=== PATIENT | female | born 1975 | race Asian ===

== ENCOUNTER 2017-08-21 13:36 | Day surgery (SDC) | payer BC, OTHER ==
[2017-08-21 13:59] VITALS: BMI 31.1
[2017-08-21] MEDS ORDERED: ONDANSETRON 4 MG/2 ML VIAL IVPUSH PRN ×2 (14:24→14:55)
[2017-08-21] MEDS ORDERED: oxyCODONE HCL 5 MG TABLET PO PRN ×2 (14:24→14:55)
[2017-08-21] MEDS ORDERED: PROMETHAZINE HCL 25 MG/1 ML VIAL IVPUSH PRN (14:24)
[2017-08-21] MEDS ORDERED: LACTATED RINGERS SOLUTION 1,000 ML IV SCH (14:30)
[2017-08-21] MEDS ORDERED: PROPOFOL 20 ML ONE (14:35)
[2017-08-21] MEDS ORDERED: SUCCINYLCHOLINE CHLORIDE 200 MG/10 ML VIAL ONE (14:35)
[2017-08-21] MEDS ORDERED: IBUPROFEN 800 MG/8 ML IJ IVPB PRN (14:55)
[2017-08-21] MEDS ORDERED: IBUPROFEN 600 MG TABLET (FP) PO PRN (14:55)
[2017-08-21] MEDS ORDERED: ELECTROLYTE-148 SOLN 1,000 ML IV SCH (15:00)
[2017-08-21 16:01] VITALS: TEMP 97.7
[2017-08-21 17:11] VITALS: BP 121/85; PULSE 70
--- NOTE | 2017-08-21 19:43 | OP ---
DATE OF OPERATION: 08/21/2017 PREOPERATIVE DIAGNOSIS: Menometrorrhagia, anemia, endometrial polyp. POSTOPERATIVE DIAGNOSIS: Menometrorrhagia, anemia, endometrial polyp. PROCEDURE: Hysteroscopy, dilatation and curettage, polypectomy. SURGEON: Jurgen Patterson MD ANESTHESIA: General. ANESTHESIOLOGIST: Inna Gonzales MD ESTIMATED BLOOD LOSS: 50 mL. OPERATION: Patient was taken to operating room under adequate general anesthesia. Examination under anesthesia revealed external genitalia to be normal. Vagina with moderate amount of red blood. Cervix was slightly open. No gross lesion. Uterus was normal size. Adnexa: No masses palpable. Then with a weighted speculum in the vagina, anterior lip of the cervix was grasped with single-tooth tenaculum and then hysteroscope was introduced. Visualization of the endocervical canal appeared to be normal. Endometrium was irregular, hypertrophic, with a polyp at the fundal area, approximately 1 cm. Both cornua region were identified. No other abnormality found. No submucous myoma was seen. Then the hysteroscope was withdrawn. Polyp was removed, and then endometrium was curetted in software engineer mobile fashion and large amount of tissue was obtained. Patient tolerated procedure well, left the OR in good condition. JURGEN PATTERSON M.D. [id number]
--- NOTE | 2017-08-25 12:42 | PATH ---
Surgical Pathology Report Patient Name: JASMIN ANDRADE [facility]. Rec. #: [id number] /Age/Gender: 1975 (Age: 42) / F Account: [id number] Location: [facility] SUR[facility] Taken: 08/21/2017 Received: 08/22/2017 Reported: 08/25/2017 Physicians: Jurgen Patterson M.D. Specimen(s) Received A: ENDOMETRIAL POLYP B: ENDOMETRIAL CURETTINGS Clinical History Anemia, acute blood loss Final Diagnosis A. ENDOMETRIAL POLYP, DILATATION AND CURETTAGE: ENDOMETRIAL POLYP, FRAGMENTS. B. ENDOMETRIAL CURETTINGS, DILATATION AND CURETTAGE: ENDOMETRIAL POLYP, FRAGMENTS Electronically Signed Carlota Acharya M.D. Gross Description A. Received in formalin labeled "endometrial polyp," is a 1.7 x 1.5 x 0.3 cm aggregate of ellison soft tissue fragments. The formalin is filtered and the specimen is entirely submitted in one cassette. B. Received in formalin labeled "endometrial curettings," is a 4.3 x 2.7 x 0.3 cm aggregate of ellison-brown soft tissue fragments. The formalin is filtered and the specimen is entirely submitted in 2 cassettes. 08/22/2017 saudi08/22/2017
== END 2017-08-21 17:20 | disposition home or self-care (01) ==
LOC: JPSTO 13:36 → JASU-SURG 13:36
PROVIDERS: ATTEND Obstetrics & Gynecology
PROC: 0UB98ZX Excision of Uterus, Via Natural or Artificial Opening Endoscopic, Diagnostic (ICD-10-PCS; principal; 2017-08-21 15:00)
PROC: 0UDB8ZX Extraction of Endometrium, Via Natural or Artificial Opening Endoscopic, Diagnostic (ICD-10-PCS; 2017-08-21 15:00)
DX: N92.1 Excessive and frequent menstruation with irregular cycle (principal); D50.0 Iron deficiency anemia secondary to blood loss (chronic); N84.0 Polyp of corpus uteri
CPT/HCPCS: 36415; 84702; 88305-TC; 94760

== ENCOUNTER 2017-12-11 13:29 | Day surgery (SDC) | payer BC, OTHER ==
[2017-12-10 15:52] VITALS: BMI 31.8
[2017-12-11 14:07] LABS: BASO % 0.7 % (0-2.0); EOS % 1.5 % (0-4.5); HEMATOCRIT 31.4 % (32.4-45.2); HEMOGLOBIN 10.2 GM/dL (10.7-15.3); LYMPH % 27.2 % (8-40); MCH 26.4 pg (25.7-33.7); MCHC 32.5 g/dl (32.0-36.0); MEAN CELL VOLUME 81.4 fl (80-96); MEAN PLT VOLUME 6.7 fl (7.5-11.1); NEUT % 63.6 % (42.8-82.8); PLATELET COUNT 223 K/MM3 (134-434); RBC 3.86 M/mm3 (3.60-5.2); RDW 16.9 % (11.6-15.6); WHITE BLOOD COUNT 5.3 K/mm3 (4.0-10.0)
[2017-12-11] MEDS ORDERED: PROPOFOL 20 ML ONE ×2 (14:08)
[2017-12-11] MEDS ORDERED: MIDAZOLAM HCL 2 MG/2 ML SINGLE DOSE VIAL ONE (14:08)
[2017-12-11 14:19] LABS: INR 0.95 (0.82-1.09); PROTHROMBIN TIME (PATIENT) 10.7 SEC (9.98-11.88)
--- NOTE | 2017-12-11 14:36 | HP ---
Past Medical History - Primary Care Physician PCP:: Jurgen Patterson - Admission Chief Complaint: menometrorrhagia History of Present Illness: 42 yo f with hx of irregular vaginal bleeding and anemia, sono thicken EM admitted for hysteroscoy, D&C, rba discussed History Source: Patient Limitations to Obtaining History: No Limitations - Past Surgical History Hx Myomectomy: No Hx Transabdominal Cerclage: No - Smoking History Smoking history: Never smoked Have you smoked in the past 12 months: No Aproximately how many cigarettes per day: 0 - Alcohol/Substance Use Hx Alcohol Use: No - Social History Usual Living Arrangement: Yes: With Spouse Home Medications - Allergies Allergies/Adverse Reactions: Allergies Allergy/AdvReac Type Severity Reaction Status Date / Time No Known Allergies Allergy Verified 12/11/17 13:56 - Home Medications Home Medications: Ambulatory Orders Vitamins (Sjr) - 1 tab PO DAILY #90 tablet 08/21/17 Olmesartan Medoxomil [Benicar] 20 mg PO DAILY 12/10/17 Simvastatin 10 mg PO HS 12/10/17 Review of Systems - Review of Systems Constitutional: reports: Lethargy, Malaise Eyes: reports: No Symptoms HENT: reports: No Symptoms Neck: reports: No Symptoms Cardiovascular: reports: No Symptoms Respiratory: reports: No Symptoms Gastrointestinal: reports: No Symptoms Genitourinary: reports: Vaginal Bleeding Breasts: reports: No Symptoms Reported Musculoskeletal: reports: No Symptoms Integumentary: reports: No Symptoms Neurological: reports: No Symptoms Endocrine: reports: No Symptoms Hematology/Lymphatic: reports: No Symptoms Psychiatric: reports: No Symptoms Physical Exam-BETA TESTER Vital Signs: Vital Signs Temperature 98.3 F 12/11/17 13:57 Pulse Rate 67 12/11/17 13:57 Respiratory Rate 16 12/11/17 13:57 Blood Pressure 134/64 12/11/17 13:57 O2 Sat by Pulse Oximetry (%) 100 12/11/17 13:57 Constitutional: Yes: Well Nourished, No Distress, Calm Eyes: Yes: WNL, Conjunctiva Clear, EOM Intact HENT: Yes: WNL, Atraumatic, Normocephalic Neck: Yes: WNL, Supple, Trachea Midline Cardiovascular: Yes: WNL, Regular Rate and Rhythm Respiratory: Yes: WNL, Regular, CTA Bilaterally Gastrointestinal: Yes: WNL ...Rectal Exam: Yes: WNL Renal/: Yes: WNL Vaginal Exam: Yes: Normal Cervix: Yes: Normal, Bleeding Uterus: Yes: Anteverted, Enlarged (globular) Adnexa: Not Palpable: Left, Right Breast(s): Yes: WNL Musculoskeletal: Yes: WNL Extremities: Yes: WNL Edema: No Integumentary: Yes: WNL Neurological: Yes: WNL, Alert, Oriented ...Motor Strength: WNL Psychiatric: Yes: WNL, Alert, Oriented Labs: CBC, BMP 12/11/17 13:40 Problem List - Problem (1) Menometrorrhagia Code(s): N92.1 - EXCESSIVE AND FREQUENT MENSTRUATION WITH IRREGULAR CYCLE (2) Anemia Code(s): D64.9 - ANEMIA, UNSPECIFIED Qualifiers: Anemia type: iron deficiency (3) Thickened endometrium Code(s): R93.8 - ABNORMAL FINDINGS ON DIAGNOSTIC IMAGING OF BODY STRUCTURES Assessment/Plan hysteroscopy D&C
[2017-12-11] MEDS ORDERED: oxyCODONE HCL 5 MG TABLET PO PRN ×2 (16:11)
[2017-12-11] MEDS ORDERED: ELECTROLYTE-148 SOLN 1,000 ML IV SCH (16:15)
[2017-12-11 17:02] VITALS: TEMP 97.9
[2017-12-11 17:30] VITALS: BP 135/79; PULSE 79
--- NOTE | 2017-12-12 09:55 | OP ---
DATE OF OPERATION: 12/11/2017 PREOPERATIVE DIAGNOSES: Menometrorrhagia, anemia, thickened endometrium. POSTOPERATIVE DIAGNOSES: Menometrorrhagia, anemia, thickened endometrium. PROCEDURE: Hysteroscopy, dilatation and curettage, and polypectomy. SURGEON: Jurgen Patterson MD ANESTHESIA: General. ESTIMATED BLOOD LOSS: 50 mL DESCRIPTION OF OPERATION: Patient was taken to the operating room. Under adequate general anesthesia, examination under anesthesia revealed external genitalia to be normal. Vagina was normal with small amount of blood in the vault. Cervix was closed. No gross lesion. Uterus was prominent, and no other abnormalities were found. Both adnexa were normal. Then, with a weighted speculum in the vagina, anterior lip of the cervix was grasped with a single-tooth tenaculum, and then, uterine cavity was sounded to 9 cm. Then, cervix was slightly dilated, and then, hysteroscope was introduced into the uterine cavity. Endocervical canal appeared to be normal. Endometrium was thick and irregular with multiple small polyps were seen. Both cornual regions were identified. No other abnormalities were found. Then, hysteroscope was withdrawn. Cervix was gradually dilated with Hegar dilators. Polyps were removed, and then, endometrium was curetted. Patient tolerated the procedure well, left the OR in good condition. JURGEN PATTERSON M.D. [id number]
--- NOTE | 2017-12-15 15:02 | PATH ---
Surgical Pathology Report Patient Name: JASMIN [facility]RADE [facility]. Rec. #: [id number] /Age/Gender: 1975 (Age: 42) / F Account: [id number] Location: [facility] Taken: 12/11/2017 Received: 12/12/2017 Reported: 12/15/2017 Physicians: Karan Barber M.D. Specimen(s) Received ENDOMETRIAL CURETTINGS Clinical History Irregular bleeding Final Diagnosis ENDOMETRIAL CURETTINGS, DILATION AND CURETTAGE: FRAGMENTS OF ENDOMETRIAL POLYP. Electronically Signed Carlota Acharya M.D. Gross Description Received in formalin labeled "endometrial curettings," is a 4.0 x 3.5 x 0.4 cm aggregate of ellison soft tissue fragments. The formalin is filtered and the specimen is entirely submitted in 3 cassettes. /12/12/201712/12/2017
== END 2017-12-11 17:15 | disposition home or self-care (01) ==
LOC: JASU-SURG 13:29
PROVIDERS: ATTEND Obstetrics & Gynecology
PROC: 0UJD8ZZ Inspection of Uterus and Cervix, Via Natural or Artificial Opening Endoscopic (ICD-10-PCS; 2017-12-11)
PROC: 0UB97ZX Excision of Uterus, Via Natural or Artificial Opening, Diagnostic (ICD-10-PCS; principal; 2017-12-11 15:00)
PROC: 0UDB7ZX Extraction of Endometrium, Via Natural or Artificial Opening, Diagnostic (ICD-10-PCS; 2017-12-11 15:00)
DX: N92.1 Excessive and frequent menstruation with irregular cycle (principal); D64.9 Anemia, unspecified; N84.0 Polyp of corpus uteri
CPT/HCPCS: 36415; 84703; 85025; 85610; 86850; 86900; 86901; 88305-TC; 94760

== ENCOUNTER 2018-02-10 05:11 | Day surgery (SDC) | payer BC, OTHER ==
[2018-02-09 09:47] VITALS: BMI 32.0
--- NOTE | 2018-02-10 07:37 | HP ---
Past Medical History - Primary Care Physician PCP:: Jurgen Patterson - Admission Chief Complaint: menometrorragia, anemia History of Present Illness: 42 yo f with hx of menometrorrhagia , 2 previous d&C , hx of blood transfusion for anemia admitted for hydroablation, rba discussed History Source: Patient Limitations to Obtaining History: No Limitations - Past Medical History Cardiovascular: Yes: HTN, Hyperlipdemia Reproductive: Yes: Ectopic ...: 2 Heme/Onc: Yes: Anemia - Past Surgical History Hx Myomectomy: No Hx Transabdominal Cerclage: No - Smoking History Smoking history: Never smoked Have you smoked in the past 12 months: No Aproximately how many cigarettes per day: 0 - Alcohol/Substance Use Hx Alcohol Use: No - Social History History of Recent Travel: No Home Medications - Allergies Allergies/Adverse Reactions: Allergies Allergy/AdvReac Type Severity Reaction Status Date / Time No Known Allergies Allergy Verified 02/10/18 07:26 - Home Medications Home Medications: Ambulatory Orders Simvastatin 10 mg PO HS 12/10/17 Olmesartan Medoxomil [Benicar] 5 mg PO DAILY 02/09/18 Review of Systems - Review of Systems Constitutional: reports: No Symptoms Eyes: reports: No Symptoms HENT: reports: No Symptoms Neck: reports: No Symptoms Cardiovascular: reports: No Symptoms Respiratory: reports: No Symptoms Gastrointestinal: reports: No Symptoms Genitourinary: reports: Vaginal Bleeding Musculoskeletal: reports: No Symptoms Integumentary: reports: No Symptoms Neurological: reports: No Symptoms Endocrine: reports: No Symptoms Physical Exam-HOME THEATER SPECIALIST Vital Signs: Vital Signs Temperature 97.3 F L 02/10/18 07:28 Pulse Rate 61 02/10/18 07:28 Respiratory Rate 16 02/10/18 07:28 Blood Pressure 134/92 02/10/18 07:28 O2 Sat by Pulse Oximetry (%) 100 02/10/18 07:28 Constitutional: Yes: Well Nourished, No Distress, Calm Eyes: Yes: WNL, Conjunctiva Clear, EOM Intact HENT: Yes: WNL, Atraumatic, Normocephalic Neck: Yes: WNL, Supple, Trachea Midline Cardiovascular: Yes: WNL, Regular Rate and Rhythm Respiratory: Yes: WNL, Regular, CTA Bilaterally Gastrointestinal: Yes: WNL ...Rectal Exam: Yes: Deferred, Guaiac Trace Renal/: Yes: WNL Pelvis: Yes: WNL External Genitalia: Yes: Normal Internal Exam Deferred: No Vaginal Exam: Yes: Normal Cervix: Yes: Normal Uterus: Yes: Normal Adnexa: Not Palpable: Left, Right Breast(s): Yes: WNL Musculoskeletal: Yes: WNL Extremities: Yes: WNL Edema: No Integumentary: Yes: WNL Neurological: Yes: WNL, Alert, Oriented ...Motor Strength: WNL Psychiatric: Yes: WNL, Alert, Oriented Problem List - Problem (1) Menometrorrhagia Code(s): N92.1 - EXCESSIVE AND FREQUENT MENSTRUATION WITH IRREGULAR CYCLE (2) Menometrorrhagia Code(s): N92.1 - EXCESSIVE AND FREQUENT MENSTRUATION WITH IRREGULAR CYCLE (3) Anemia Code(s): D64.9 - ANEMIA, UNSPECIFIED Qualifiers: Anemia type: iron deficiency Iron deficiency anemia type: chronic blood loss Qualified Code(s): D50.0 - Iron deficiency anemia secondary to blood loss (chronic) Assessment/Plan hydroablation, rba discussed
[2018-02-10] MEDS ORDERED: PROPOFOL 20 ML ONE ×3 (13:10→13:29)
[2018-02-10] MEDS ORDERED: ceFAZolin SODIUM 1 GM VIAL ONE (13:17)
[2018-02-10] MEDS ORDERED: ceFAZolin SODIUM 1 GM VIAL IVPB ONE (13:18)
[2018-02-10] MEDS ORDERED: KETOROLAC TROMETHAMINE 30 MG/1 ML VIAL ONE (13:27)
[2018-02-10] MEDS ORDERED: ACETAMINOPHEN 325 MG TABLET (FP) PO PRN (13:54)
[2018-02-10] MEDS ORDERED: ONDANSETRON 4 MG/2 ML VIAL IVPUSH PRN ×2 (13:54→14:58)
[2018-02-10] MEDS ORDERED: oxyCODONE HCL 5 MG TABLET PO PRN ×2 (13:54→14:58)
[2018-02-10] MEDS ORDERED: LACTATED RINGERS SOLUTION 1,000 ML IV SCH (14:00)
[2018-02-10] MEDS ORDERED: IBUPROFEN 600 MG TABLET (FP) PO PRN (14:58)
[2018-02-10] MEDS ORDERED: IBUPROFEN 800 MG/8 ML IJ IVPB PRN (14:58)
[2018-02-10] MEDS ORDERED: ELECTROLYTE-148 SOLN 1,000 ML IV SCH (15:00)
[2018-02-10 16:14] VITALS: TEMP 97.8
[2018-02-10 17:01] VITALS: BP 139/82; PULSE 51
--- NOTE | 2018-02-12 08:34 | OP ---
DATE OF OPERATION: 02/10/2018 PREOPERATIVE DIAGNOSES: 1. Menometrorrhagia. 2. Anemia. POSTOPERATIVE DIAGNOSES: 1. Menometrorrhagia. 2. Anemia. 3. Small posterior, lower uterine segment myoma. SURGEON: Jurgen Amaral MD ANESTHESIA: General. ANESTHESIOLOGIST: Shani Vail DO ESTIMATED BLOOD LOSS: Minimal. DESCRIPTION OF OPERATION: Patient was taken to the operating room. Under adequate general anesthesia, examination under anesthesia revealed the external genitalia to be normal. Vagina was normal. Cervix was clean; no lesion. Uterus normal size. Adnexa: No masses were palpable. Then, with a weighted speculum in the vagina, anterior lip of the cervix was grasped with a single-tooth tenaculum. Then, uterine cavity was sounded to 8 cm. The cervix was slightly dilated, and then, hysteroscope was introduced. Visualization of the endocervical canal appeared to be normal. There was a 2-cm posterior myoma in the lower uterine segment was noted. Both cornual regions were identified. Endometrium appeared to be slightly hypertrophic but no gross lesion or polyp was seen. At this time, hysteroscope was withdrawn, and then, hydro ablation hysteroscope was introduced. After proper priming and testing for the seal, hydro ablation was done for 10 minutes. Patient tolerated the procedure well, left the OR in good condition. JURGEN AMARAL M.D. /[id number]
== END 2018-02-10 17:03 | disposition home or self-care (01) ==
LOC: JASU-SURG 05:11
PROVIDERS: ATTEND Obstetrics & Gynecology
PROC: 0U5B8ZZ Destruction of Endometrium, Via Natural or Artificial Opening Endoscopic (ICD-10-PCS; principal; 2018-02-10 08:30)
DX: N92.1 Excessive and frequent menstruation with irregular cycle (principal); D64.9 Anemia, unspecified; D25.9 Leiomyoma of uterus, unspecified
CPT/HCPCS: 84703; 94760